=== PATIENT | female | born 1950 | race Caucasian/White ===

== ENCOUNTER 2017-06-13 06:40 | Inpatient (IN) | payer MEDICARE ==
[~2017-06-13] VITALS: Ht 170.2 cm; Wt 126.3 kg
[2017-06-13] MEDS ORDERED: LIDOCAINE 1%, 50ML ONE (06:46)
[2017-06-13] MEDS ORDERED: BUPIVACAINE/PF 0.5% ONE (06:46)
[2017-06-13] MEDS ORDERED: BACITRACIN 50,000 UNIT ONE (06:47)
[2017-06-13] MEDS ORDERED: HEPARIN 1,000 UNITS/ML, 10ML ONE (06:47)
[2017-06-13] MEDS ORDERED: THROMBIN 20,000 UNIT VIAL TP ONE (06:47)
[2017-06-13] MEDS ORDERED: EPINEPHRINE 1 MG/ML, 1ML ONE (06:47)
[2017-06-13] MEDS ORDERED: PAPAVERINE 30 MG/ML, 2ML ONE (06:47)
[2017-06-13] MEDS ORDERED: PROTAMINE SULFATE 10 MG/ML, 5ML ONE (06:47)
[2017-06-13] MEDS ORDERED: MIDAZOLAM 1 MG/ML, 2ML ONE (07:03)
[2017-06-13] MEDS ORDERED: FENTANYL PF 250 MCG/5ML ONE (07:03)
[2017-06-13 07:50] VITALS: BP 150/72
[2017-06-13 08:15] LABS: HEMATOCRIT 33.4 % (34.6-47.8); HEMOGLOBIN 11.2 g/dL (11.7-16.4); WHITE BLOOD COUNT 15.3 x10^3/uL (3.4-10)
[2017-06-13 08:16] LABS: ASPARTATE AMINO TRANSFERASE 21 U/L (15-37); BLOOD UREA NITROGEN 20 mg/dL (7-18)
[2017-06-13] MEDS ORDERED: iron PO (08:17)
[2017-06-13] MEDS ORDERED: OMEP-110 PO (08:17)
[2017-06-13] MEDS ORDERED: ROFL500T PO (08:17)
[2017-06-13] MEDS ORDERED: GLIP5TAB10 PO ×2 (08:17)
[2017-06-13] MEDS ORDERED: TIOT18CA INH (08:17)
[2017-06-13] MEDS ORDERED: TRAZ50TA18 PO (08:17)
[2017-06-13] MEDS ORDERED: CHOL5000 PO (08:17)
[2017-06-13] MEDS ORDERED: TRAM50TA2 PO (08:17)
[2017-06-13] MEDS ORDERED: GUAI-103 PO (08:17)
[2017-06-13] MEDS ORDERED: PRED20TA PO (08:17)
[2017-06-13] MEDS ORDERED: LEVO137T3 PO (08:17)
[2017-06-13] MEDS ORDERED: FURO20TA3 PO (08:17)
[2017-06-13] MEDS ORDERED: ATOR40TA78 PO (08:17)
[2017-06-13] MEDS ORDERED: OXYC10TA47 PO (08:17)
[2017-06-13] MEDS ORDERED: DULO30CA2 PO (08:17)
[2017-06-13] MEDS ORDERED: ALBU5SOL6 INH (08:17)
[2017-06-13] MEDS ORDERED: AZIT250T PO (08:17)
[2017-06-13] MEDS ORDERED: BUDE10.2 INH (08:17)
[2017-06-13] MEDS ORDERED: POTA10CA PO (08:17)
[2017-06-13] MEDS ORDERED: CLOP75TA52 PO (08:18)
[2017-06-13] MEDS ORDERED: LACTATED RINGERS 1,000 ML IV SCH (08:19)
[2017-06-13] MEDS ORDERED: HYDROmorphone 1 MG/ML, 1ML IV PRN (08:30)
[2017-06-13] MEDS ORDERED: hydrALAzine 20 MG/ML, 1ML IV PRN (08:30)
[2017-06-13] MEDS ORDERED: FENTANYL PF 100 MCG/2ML IV PRN ×2 (08:30→13:30)
[2017-06-13] MEDS ORDERED: ONDANSETRON 2MG/ML, 2ML IVPush PRN (08:30)
[2017-06-13] MEDS ORDERED: OXYcodone 5 MG/5 ML ORAL.SOL UDC PO PRN (08:30)
[2017-06-13] MEDS ORDERED: ACETAMINOPHEN 325 MG TABLET PO PRN ×2 (08:30→13:30)
[2017-06-13] MEDS ORDERED: SUCCINYLCHOLINE 20 MG/ML, 10ML ONE (08:39)
[2017-06-13] MEDS ORDERED: PROPOFOL 10 MG/ML, 20ML ONE (08:39)
[2017-06-13] MEDS ORDERED: NEOSTIGMINE 1 MG/ML, 10ML ONE (08:39)
[2017-06-13] MEDS ORDERED: DEXAMETHASONE 4 MG/ML, 5ML ONE (08:39)
[2017-06-13] MEDS ORDERED: CEFAZOLIN 1,000 MG ONE (08:39)
[2017-06-13] MEDS ORDERED: ONDANSETRON 2MG/ML, 2ML ONE (08:39)
[2017-06-13] MEDS ORDERED: GLYCOPYRROLATE 0.2MG/1ML, 5ML ONE (08:39)
[2017-06-13] MEDS ORDERED: FENTANYL PF 100 MCG/2ML ONE (11:22)
[2017-06-13] MEDS ORDERED: ACETAMINOPHEN 650 MG/20.3 ML UDC ONE (11:22)
[2017-06-13] MEDS ORDERED: OXYcodone 5 MG/5 ML ORAL.SOL UDC ONE (11:22)
[2017-06-13] MEDS ORDERED: PHENYLEPHRINE 10 MG in SODIUM CHLORIDE 0.9% 249 ML IV ONE (11:24)
[2017-06-13] MEDS ORDERED: HYDROmorphone 2 MG/ML, 1ML ONE (12:07)
[2017-06-13] MEDS ORDERED: PHENYLEPHRINE 10 MG in SODIUM CHLORIDE 0.9% 249 ML IV SCH (12:30)
[2017-06-13] MEDS ORDERED: IPRATROPIUM 0.5 MG/2.5 ML INHA NPPB SCH (13:30)
[2017-06-13] MEDS ORDERED: LABETALOL 5MG/ML, 20ML IVPush PRN (13:30)
[2017-06-13] MEDS ORDERED: ONDANSETRON 2MG/ML, 2ML IV PRN (13:30)
[2017-06-13] MEDS ORDERED: PHENYLEPHRINE 10 MG in DEXTROSE 5% 249 ML IV SCH (13:30)
[2017-06-13] MEDS ORDERED: NITROPRUSSIDE 50 MG in DEXTROSE 5% 248 ML IV SCH (13:30)
[2017-06-13] MEDS ORDERED: DEXTROSE 5% IV SCH (15:00)
[2017-06-13] MEDS ORDERED: PHENYLEPHRINE IV SCH (15:00)
[2017-06-13] MEDS: POTASSIUM CHLORIDE 20 MEQ in D5%-0.45% NACL 1,000 ML IV SCH (15:14)
[2017-06-13] MEDS ORDERED: ALBUTEROL SULFATE 2.5 MG/3 ML NPPB SCH (16:00)
[2017-06-13] MEDS ORDERED: ENOXAPARIN 40 MG/0.4 ML SQ SCH (16:00)
[2017-06-13] MEDS: ALBUTEROL/IPRATROPIUM 2.5MG/0.5MG, 3 ML NPPB SCH ×2 (17:39→20:08)
[2017-06-13] MEDS: INSULIN REGULAR, HUMAN 100 UNITS/ML, 3ML MEDIUM DOSE SS SQ-INSULIN SCH ×2 (17:56→21:03)
[2017-06-13] MEDS ORDERED: ALBUTEROL/IPRATROPIUM 2.5MG/0.5MG, 3 ML NPPB PRN (18:00)
[2017-06-13] MEDS ORDERED: ATORVASTATIN 40 MG TABLET PO SCH (21:00)
[2017-06-13] MEDS ORDERED: SODIUM CHLORIDE FLUSH 10ML SYR IVF SCH (21:00)
[2017-06-14] MEDS: ALBUTEROL/IPRATROPIUM 2.5MG/0.5MG, 3 ML NPPB SCH ×2 (02:00→05:37)
[2017-06-14] MEDS: POTASSIUM CHLORIDE 20 MEQ in D5%-0.45% NACL 1,000 ML IV SCH (02:58)
[2017-06-14] MEDS ORDERED: LEVOTHYROXINE 137 MCG TABLET PO SCH (06:00)
[2017-06-14] MEDS: INSULIN REGULAR, HUMAN 100 UNITS/ML, 3ML MEDIUM DOSE SS SQ-INSULIN SCH ×2 (06:37→11:00)
[2017-06-14] MEDS ORDERED: OMEPRAZOLE 20 MG CAPSULE.DR PO SCH (07:30)
[2017-06-14] MEDS ORDERED: ROFLUMILAST HOMEMEDPO SCH (09:00)
[2017-06-14] MEDS ORDERED: FLUTICASONE/VILANTEROL 200-25MCG/INH INH SCH (09:00)
[2017-06-14] MEDS ORDERED: ALBUTEROL/IPRATROPIUM 2.5MG/0.5MG, 3 ML NPPB SCH (09:00)
[2017-06-14] MEDS ORDERED: [UNRECOGNIZED DRUG - OTHER] HOMEMEDPO SCH (09:00)
[2017-06-14] MEDS ORDERED: DULOXETINE 30 MG CAPSULE.DR PO SCH (09:00)
[2017-06-14] MEDS ORDERED: FUROSEMIDE 40 MG TABLET PO SCH (09:00)
[2017-06-15] MEDS ORDERED: AZITHROMYCIN 250 MG TABLET PO SCH (09:00)
== END 2017-06-14 13:09 | disposition home or self-care (01) | DRG 38 ==
LOC: ORIP 06:40 → CCU 12:42
PROVIDERS: ADMIT Surgery; ATTEND Surgery
PROC: 03UH0JZ Supplement Right Common Carotid Artery with Synthetic Substitute, Open Approach (ICD-10-PCS; 2017-06-13)
PROC: 03CM0ZZ Extirpation of Matter from Right External Carotid Artery, Open Approach (ICD-10-PCS; 2017-06-13)
PROC: 03CK0ZZ Extirpation of Matter from Right Internal Carotid Artery, Open Approach (ICD-10-PCS; 2017-06-13)
PROC: 03CH0ZZ Extirpation of Matter from Right Common Carotid Artery, Open Approach (ICD-10-PCS; principal; 2017-06-13 08:30)
DX: I65.23 Occlusion and stenosis of bilateral carotid arteries (principal); J96.10 Chronic respiratory failure, unspecified whether with hypoxia or hypercapnia; I48.91 Unspecified atrial fibrillation; E66.01 Morbid (severe) obesity due to excess calories; Z99.81 Dependence on supplemental oxygen; Z68.41 Body mass index [BMI] 40.0-44.9, adult; E03.9 Hypothyroidism, unspecified; E11.9 Type 2 diabetes mellitus without complications; E78.00 Pure hypercholesterolemia, unspecified; Z96.652 Presence of left artificial knee joint; E78.5 Hyperlipidemia, unspecified; I10 Essential (primary) hypertension; J44.9 Chronic obstructive pulmonary disease, unspecified; Z79.01 Long term (current) use of anticoagulants; Z80.8 Family history of malignant neoplasm of other organs or systems; Z82.49 Family history of ischemic heart disease and other diseases of the circulatory system; Z82.5 Family history of asthma and other chronic lower respiratory diseases; Z87.891 Personal history of nicotine dependence; Z95.0 Presence of cardiac pacemaker
CPT/HCPCS: 36415; 80053; 82962; 85025; 85347; 86850; 86900; 87081; 93005; 94640; 95938; 95941; C1729; J0171; J0690; J1100; J1170; J1644; J1650; J1815; J2250; J2405; J2704; J2710; J2720; J3010; J3480; J3490; J7060; J7620; C1768; J0330; J2370; J2440; J7050; J7120

== ENCOUNTER 2017-12-17 11:39 | Emergency (ER) | payer MEDICARE, OTHER | END 2017-12-17 11:43 | disposition left against medical advice (07) | LOC: ED 11:40 | DX: Z53.21 Procedure and treatment not carried out due to patient leaving prior to being seen by health care provider (principal) ==

== ENCOUNTER → 2017-12-17 | Outpatient (CLI) | payer MEDICARE ==
[~2017-12-17] MED LIST: ALBU5SOL6 INH; ATOR40TA78 PO; AZIT250T PO; BUDE10.2 INH; CHOL5000 PO; CLOP75TA52 PO; DULO30CA2 PO; FURO20TA3 PO; GLIP5TAB10 PO; GUAI-103 PO; LEVO137T3 PO; OMEP-110 PO; OXYC10TA47 PO; POTA10CA PO; PRED20TA PO; ROFL500T PO; TIOT18CA INH; TRAM50TA2 PO; TRAZ50TA18 PO; iron PO
== END | disposition home or self-care (01) ==
LOC: CFH 10:23
PROVIDERS: ATTEND Surgery
DX: I65.23 Occlusion and stenosis of bilateral carotid arteries (principal)
CPT/HCPCS: 93880

== ENCOUNTER 2020-09-08 13:55 | Outpatient (CLI) | payer MEDICARE ==
[~2020-09-08 13:55] MED LIST changes: -TRAZ50TA18 PO; +TRAZ50TA66 PO
== END 2020-09-08 23:59 | disposition home or self-care (01) ==
LOC: WOUND 13:55
PROVIDERS: ATTEND Podiatrist Foot & Ankle Surgery
DX: E11.621 Type 2 diabetes mellitus with foot ulcer (principal); L97.522 Non-pressure chronic ulcer of other part of left foot with fat layer exposed; J44.9 Chronic obstructive pulmonary disease, unspecified; I10 Essential (primary) hypertension; E78.5 Hyperlipidemia, unspecified; E03.9 Hypothyroidism, unspecified; I48.91 Unspecified atrial fibrillation; E78.00 Pure hypercholesterolemia, unspecified; E66.01 Morbid (severe) obesity due to excess calories; Z68.33 Body mass index [BMI] 33.0-33.9, adult; Z79.01 Long term (current) use of anticoagulants; Z95.0 Presence of cardiac pacemaker; Z87.891 Personal history of nicotine dependence; Z96.652 Presence of left artificial knee joint; Z96.649 Presence of unspecified artificial hip joint
CPT/HCPCS: 11042; G0463

== ENCOUNTER 2020-09-15 14:19 | Outpatient (CLI) | payer MEDICARE | END 2020-09-15 23:59 | disposition home or self-care (01) | LOC: WOUND 14:19 | PROVIDERS: ATTEND Podiatrist Foot & Ankle Surgery | DX: E11.621 Type 2 diabetes mellitus with foot ulcer (principal); L97.522 Non-pressure chronic ulcer of other part of left foot with fat layer exposed; J44.9 Chronic obstructive pulmonary disease, unspecified; I10 Essential (primary) hypertension; E78.5 Hyperlipidemia, unspecified; E03.9 Hypothyroidism, unspecified; I48.91 Unspecified atrial fibrillation; E78.00 Pure hypercholesterolemia, unspecified; E66.01 Morbid (severe) obesity due to excess calories; Z68.33 Body mass index [BMI] 33.0-33.9, adult; Z79.01 Long term (current) use of anticoagulants; Z95.0 Presence of cardiac pacemaker; Z87.891 Personal history of nicotine dependence; Z96.652 Presence of left artificial knee joint; Z96.649 Presence of unspecified artificial hip joint | CPT/HCPCS: 11042 ==

== ENCOUNTER → 2020-09-29 | Outpatient (CLI) | payer MEDICARE | END | disposition home or self-care (01) | LOC: WOUND 12:31 | PROVIDERS: ATTEND Podiatrist Foot & Ankle Surgery | DX: E11.621 Type 2 diabetes mellitus with foot ulcer (principal); L97.522 Non-pressure chronic ulcer of other part of left foot with fat layer exposed; I10 Essential (primary) hypertension; E78.5 Hyperlipidemia, unspecified; E03.9 Hypothyroidism, unspecified; J44.9 Chronic obstructive pulmonary disease, unspecified; E78.00 Pure hypercholesterolemia, unspecified; I48.91 Unspecified atrial fibrillation; E66.01 Morbid (severe) obesity due to excess calories; Z87.891 Personal history of nicotine dependence; Z68.33 Body mass index [BMI] 33.0-33.9, adult; Z79.84 Long term (current) use of oral hypoglycemic drugs; Z79.899 Other long term (current) drug therapy; Z95.0 Presence of cardiac pacemaker; Z96.652 Presence of left artificial knee joint | CPT/HCPCS: 97602 ==

== ENCOUNTER 2020-10-06 13:46 | Outpatient (CLI) | payer MEDICARE | END 2020-10-06 23:59 | disposition home or self-care (01) | LOC: WOUND 13:46 | PROVIDERS: ATTEND Podiatrist Foot & Ankle Surgery | DX: E11.621 Type 2 diabetes mellitus with foot ulcer (principal); L97.525 Non-pressure chronic ulcer of other part of left foot with muscle involvement without evidence of necrosis; J44.9 Chronic obstructive pulmonary disease, unspecified; I10 Essential (primary) hypertension; E78.5 Hyperlipidemia, unspecified; E03.9 Hypothyroidism, unspecified; E78.00 Pure hypercholesterolemia, unspecified; I48.91 Unspecified atrial fibrillation; E66.01 Morbid (severe) obesity due to excess calories; Z68.33 Body mass index [BMI] 33.0-33.9, adult; Z79.899 Other long term (current) drug therapy; Z79.84 Long term (current) use of oral hypoglycemic drugs; Z96.649 Presence of unspecified artificial hip joint; Z87.891 Personal history of nicotine dependence; Z96.652 Presence of left artificial knee joint; Z95.0 Presence of cardiac pacemaker | CPT/HCPCS: 11042 ==

== ENCOUNTER 2020-10-13 11:41 | Outpatient (CLI) | payer MEDICARE | END 2020-10-13 23:59 | disposition home or self-care (01) | LOC: CFH 11:41 | PROVIDERS: ATTEND Podiatrist Foot & Ankle Surgery | DX: S93.142A Subluxation of metatarsophalangeal joint of left great toe, initial encounter (principal); M19.072 Primary osteoarthritis, left ankle and foot; E11.621 Type 2 diabetes mellitus with foot ulcer; L97.522 Non-pressure chronic ulcer of other part of left foot with fat layer exposed; M77.32 Calcaneal spur, left foot; M79.89 Other specified soft tissue disorders; X58.XXXA Exposure to other specified factors, initial encounter; Y93.89 Activity, other specified; Y92.89 Other specified places as the place of occurrence of the external cause; Y99.8 Other external cause status ==

== ENCOUNTER → 2020-10-13 | Outpatient (CLI) | payer MEDICARE | END | disposition home or self-care (01) | LOC: WOUND 11:00 | PROVIDERS: ATTEND Podiatrist Foot & Ankle Surgery | DX: E11.621 Type 2 diabetes mellitus with foot ulcer (principal); L97.522 Non-pressure chronic ulcer of other part of left foot with fat layer exposed; L03.116 Cellulitis of left lower limb; J44.9 Chronic obstructive pulmonary disease, unspecified; I10 Essential (primary) hypertension; E78.5 Hyperlipidemia, unspecified; E03.9 Hypothyroidism, unspecified; E78.00 Pure hypercholesterolemia, unspecified; I48.91 Unspecified atrial fibrillation; E66.01 Morbid (severe) obesity due to excess calories; Z68.33 Body mass index [BMI] 33.0-33.9, adult; Z79.899 Other long term (current) drug therapy; Z79.84 Long term (current) use of oral hypoglycemic drugs; Z96.649 Presence of unspecified artificial hip joint; Z87.891 Personal history of nicotine dependence; Z96.652 Presence of left artificial knee joint; Z95.0 Presence of cardiac pacemaker; Z79.01 Long term (current) use of anticoagulants | CPT/HCPCS: 11042 ==

== ENCOUNTER → 2020-10-20 | Outpatient (CLI) | payer MEDICARE | END | disposition home or self-care (01) | LOC: WOUND 10:45 | PROVIDERS: ATTEND Podiatrist Foot & Ankle Surgery | DX: E11.621 Type 2 diabetes mellitus with foot ulcer (principal); L97.522 Non-pressure chronic ulcer of other part of left foot with fat layer exposed; L03.116 Cellulitis of left lower limb; E11.69 Type 2 diabetes mellitus with other specified complication; M86.172 Other acute osteomyelitis, left ankle and foot; J44.9 Chronic obstructive pulmonary disease, unspecified; I10 Essential (primary) hypertension; E78.5 Hyperlipidemia, unspecified; E03.9 Hypothyroidism, unspecified; E78.00 Pure hypercholesterolemia, unspecified; I48.91 Unspecified atrial fibrillation; E66.01 Morbid (severe) obesity due to excess calories; Z68.33 Body mass index [BMI] 33.0-33.9, adult; Z79.899 Other long term (current) drug therapy; Z79.84 Long term (current) use of oral hypoglycemic drugs; Z96.649 Presence of unspecified artificial hip joint; Z87.891 Personal history of nicotine dependence; Z96.652 Presence of left artificial knee joint; Z95.0 Presence of cardiac pacemaker; Z79.01 Long term (current) use of anticoagulants | CPT/HCPCS: 11042 ==

== ENCOUNTER 2020-10-21 08:10 | Outpatient (CLI) | payer MEDICARE ==
[~2020-10-21 08:10] MED LIST changes: +OMNIPAQUE 350 MG/ML, 150 ML BOTTLE ONE
== END 2020-10-21 23:59 | disposition home or self-care (01) ==
LOC: CFH 08:10
PROVIDERS: ATTEND Podiatrist Foot & Ankle Surgery
DX: R60.0 Localized edema (principal); L03.116 Cellulitis of left lower limb; L97.522 Non-pressure chronic ulcer of other part of left foot with fat layer exposed
CPT/HCPCS: 73701; Q9967

== ENCOUNTER 2020-11-03 08:58 | Outpatient (CLI) | payer MEDICARE ==
[~2020-11-03 08:58] MED LIST changes: -OMNIPAQUE 350 MG/ML, 150 ML BOTTLE ONE
== END 2020-11-03 23:59 | disposition home or self-care (01) ==
LOC: WOUND 08:58
PROVIDERS: ATTEND Podiatrist Foot & Ankle Surgery
DX: E11.621 Type 2 diabetes mellitus with foot ulcer (principal); L97.522 Non-pressure chronic ulcer of other part of left foot with fat layer exposed; L03.116 Cellulitis of left lower limb; E11.69 Type 2 diabetes mellitus with other specified complication; M86.172 Other acute osteomyelitis, left ankle and foot; J44.9 Chronic obstructive pulmonary disease, unspecified; I10 Essential (primary) hypertension; E78.5 Hyperlipidemia, unspecified; E03.9 Hypothyroidism, unspecified; E78.00 Pure hypercholesterolemia, unspecified; I48.91 Unspecified atrial fibrillation; M19.072 Primary osteoarthritis, left ankle and foot; E66.01 Morbid (severe) obesity due to excess calories; Z68.33 Body mass index [BMI] 33.0-33.9, adult; Z79.899 Other long term (current) drug therapy; Z79.84 Long term (current) use of oral hypoglycemic drugs; Z96.649 Presence of unspecified artificial hip joint; Z87.891 Personal history of nicotine dependence; Z96.652 Presence of left artificial knee joint; Z95.0 Presence of cardiac pacemaker; Z79.01 Long term (current) use of anticoagulants
CPT/HCPCS: 11042

== ENCOUNTER 2020-11-10 09:56 | Outpatient (CLI) | payer MEDICARE | END 2020-11-10 23:59 | disposition home or self-care (01) | LOC: WOUND 09:56 | PROVIDERS: ATTEND Podiatrist Foot & Ankle Surgery | DX: E11.621 Type 2 diabetes mellitus with foot ulcer (principal); L97.522 Non-pressure chronic ulcer of other part of left foot with fat layer exposed; L03.116 Cellulitis of left lower limb; E11.69 Type 2 diabetes mellitus with other specified complication; M86.172 Other acute osteomyelitis, left ankle and foot; J44.9 Chronic obstructive pulmonary disease, unspecified; I10 Essential (primary) hypertension; E78.5 Hyperlipidemia, unspecified; E03.9 Hypothyroidism, unspecified; E78.00 Pure hypercholesterolemia, unspecified; I48.91 Unspecified atrial fibrillation; M19.072 Primary osteoarthritis, left ankle and foot; E66.01 Morbid (severe) obesity due to excess calories; Z68.33 Body mass index [BMI] 33.0-33.9, adult; Z79.899 Other long term (current) drug therapy; Z79.84 Long term (current) use of oral hypoglycemic drugs; Z96.649 Presence of unspecified artificial hip joint; Z87.891 Personal history of nicotine dependence; Z96.652 Presence of left artificial knee joint; Z95.0 Presence of cardiac pacemaker; Z79.01 Long term (current) use of anticoagulants | CPT/HCPCS: 15275; Q4133 ==

== ENCOUNTER → 2020-11-17 | Outpatient (CLI) | payer MEDICARE | END | disposition home or self-care (01) | LOC: WOUND 09:13 | PROVIDERS: ATTEND Podiatrist Foot & Ankle Surgery | DX: E11.621 Type 2 diabetes mellitus with foot ulcer (principal); L97.522 Non-pressure chronic ulcer of other part of left foot with fat layer exposed; L03.116 Cellulitis of left lower limb; E11.69 Type 2 diabetes mellitus with other specified complication; M86.172 Other acute osteomyelitis, left ankle and foot; J44.9 Chronic obstructive pulmonary disease, unspecified; I10 Essential (primary) hypertension; E78.5 Hyperlipidemia, unspecified; E03.9 Hypothyroidism, unspecified; E78.00 Pure hypercholesterolemia, unspecified; I48.91 Unspecified atrial fibrillation; M19.072 Primary osteoarthritis, left ankle and foot; E66.01 Morbid (severe) obesity due to excess calories; Z68.33 Body mass index [BMI] 33.0-33.9, adult; Z79.899 Other long term (current) drug therapy; Z79.84 Long term (current) use of oral hypoglycemic drugs; Z96.649 Presence of unspecified artificial hip joint; Z87.891 Personal history of nicotine dependence; Z96.652 Presence of left artificial knee joint; Z95.0 Presence of cardiac pacemaker; Z79.01 Long term (current) use of anticoagulants | CPT/HCPCS: 15275; Q4133 ==

== ENCOUNTER → 2020-11-24 | Outpatient (CLI) | payer MEDICARE | END | disposition home or self-care (01) | LOC: WOUND 10:30 | PROVIDERS: ATTEND Podiatrist Foot & Ankle Surgery | DX: E11.621 Type 2 diabetes mellitus with foot ulcer (principal); L97.522 Non-pressure chronic ulcer of other part of left foot with fat layer exposed; L03.116 Cellulitis of left lower limb; E11.69 Type 2 diabetes mellitus with other specified complication; M86.172 Other acute osteomyelitis, left ankle and foot; J44.9 Chronic obstructive pulmonary disease, unspecified; I10 Essential (primary) hypertension; E78.5 Hyperlipidemia, unspecified; E03.9 Hypothyroidism, unspecified; E78.00 Pure hypercholesterolemia, unspecified; I48.91 Unspecified atrial fibrillation; M19.072 Primary osteoarthritis, left ankle and foot; E66.01 Morbid (severe) obesity due to excess calories; Z68.33 Body mass index [BMI] 33.0-33.9, adult; Z79.899 Other long term (current) drug therapy; Z79.84 Long term (current) use of oral hypoglycemic drugs; Z96.649 Presence of unspecified artificial hip joint; Z87.891 Personal history of nicotine dependence; Z96.652 Presence of left artificial knee joint; Z95.0 Presence of cardiac pacemaker; Z79.01 Long term (current) use of anticoagulants | CPT/HCPCS: 15275; Q4132 ==

== ENCOUNTER → 2020-12-01 | Outpatient (CLI) | payer MEDICARE | END | disposition home or self-care (01) | LOC: WOUND 08:45 | PROVIDERS: ATTEND Podiatrist Foot & Ankle Surgery | DX: E11.621 Type 2 diabetes mellitus with foot ulcer (principal); L97.522 Non-pressure chronic ulcer of other part of left foot with fat layer exposed; L03.116 Cellulitis of left lower limb; E11.69 Type 2 diabetes mellitus with other specified complication; M86.172 Other acute osteomyelitis, left ankle and foot; J44.9 Chronic obstructive pulmonary disease, unspecified; I10 Essential (primary) hypertension; E78.5 Hyperlipidemia, unspecified; E03.9 Hypothyroidism, unspecified; E78.00 Pure hypercholesterolemia, unspecified; I48.91 Unspecified atrial fibrillation; M19.072 Primary osteoarthritis, left ankle and foot; E66.01 Morbid (severe) obesity due to excess calories; Z68.33 Body mass index [BMI] 33.0-33.9, adult; Z79.899 Other long term (current) drug therapy; Z79.84 Long term (current) use of oral hypoglycemic drugs; Z96.649 Presence of unspecified artificial hip joint; Z87.891 Personal history of nicotine dependence; Z96.652 Presence of left artificial knee joint; Z95.0 Presence of cardiac pacemaker; Z79.01 Long term (current) use of anticoagulants | CPT/HCPCS: 15275; Q4133 ==

== ENCOUNTER → 2020-12-15 | Outpatient (CLI) | payer MEDICARE | END | disposition home or self-care (01) | LOC: WOUND 10:17 | PROVIDERS: ATTEND Podiatrist Foot & Ankle Surgery | DX: E11.621 Type 2 diabetes mellitus with foot ulcer (principal); L97.522 Non-pressure chronic ulcer of other part of left foot with fat layer exposed; S81.811A Laceration without foreign body, right lower leg, initial encounter; L03.116 Cellulitis of left lower limb; E11.69 Type 2 diabetes mellitus with other specified complication; M86.172 Other acute osteomyelitis, left ankle and foot; J44.9 Chronic obstructive pulmonary disease, unspecified; I10 Essential (primary) hypertension; E78.5 Hyperlipidemia, unspecified; E03.9 Hypothyroidism, unspecified; E78.00 Pure hypercholesterolemia, unspecified; I48.91 Unspecified atrial fibrillation; M19.072 Primary osteoarthritis, left ankle and foot; E66.01 Morbid (severe) obesity due to excess calories; Z68.33 Body mass index [BMI] 33.0-33.9, adult; Z79.899 Other long term (current) drug therapy; Z79.84 Long term (current) use of oral hypoglycemic drugs; Z96.649 Presence of unspecified artificial hip joint; Z87.891 Personal history of nicotine dependence; Z96.652 Presence of left artificial knee joint; Z95.0 Presence of cardiac pacemaker; Z79.01 Long term (current) use of anticoagulants; X58.XXXA Exposure to other specified factors, initial encounter; Y93.89 Activity, other specified; Y92.89 Other specified places as the place of occurrence of the external cause; Y99.8 Other external cause status | CPT/HCPCS: 15275; Q4133 ==

== ENCOUNTER 2020-12-22 10:59 | Outpatient (CLI) | payer MEDICARE ==
[~2020-12-22 10:59] MED LIST changes: -ALBU5SOL6 INH; +DOCU50LI23 INH
== END 2020-12-22 23:59 | disposition home or self-care (01) ==
LOC: WOUND 10:59
PROVIDERS: ATTEND Podiatrist Foot & Ankle Surgery
DX: E11.621 Type 2 diabetes mellitus with foot ulcer (principal); L97.522 Non-pressure chronic ulcer of other part of left foot with fat layer exposed; L97.511 Non-pressure chronic ulcer of other part of right foot limited to breakdown of skin; L97.413 Non-pressure chronic ulcer of right heel and midfoot with necrosis of muscle; S81.811D Laceration without foreign body, right lower leg, subsequent encounter; E11.69 Type 2 diabetes mellitus with other specified complication; M86.172 Other acute osteomyelitis, left ankle and foot; L03.116 Cellulitis of left lower limb; J44.9 Chronic obstructive pulmonary disease, unspecified; I10 Essential (primary) hypertension; E78.5 Hyperlipidemia, unspecified; E03.9 Hypothyroidism, unspecified; E78.00 Pure hypercholesterolemia, unspecified; M19.072 Primary osteoarthritis, left ankle and foot; E66.01 Morbid (severe) obesity due to excess calories; I48.91 Unspecified atrial fibrillation; Z68.33 Body mass index [BMI] 33.0-33.9, adult; Z95.0 Presence of cardiac pacemaker; Z96.652 Presence of left artificial knee joint; Z96.649 Presence of unspecified artificial hip joint; Z87.891 Personal history of nicotine dependence; X58.XXXD Exposure to other specified factors, subsequent encounter
CPT/HCPCS: 11043; 11046; 15275; 97597; Q4133

== ENCOUNTER → 2020-12-29 | Outpatient (CLI) | payer MEDICARE ==
[~2020-12-29] MED LIST changes: +ALBU5SOL6 INH; -DOCU50LI23 INH
== END | disposition home or self-care (01) ==
LOC: WOUND 11:00
PROVIDERS: ATTEND Podiatrist Foot & Ankle Surgery
DX: E11.621 Type 2 diabetes mellitus with foot ulcer (principal); L97.413 Non-pressure chronic ulcer of right heel and midfoot with necrosis of muscle; L97.522 Non-pressure chronic ulcer of other part of left foot with fat layer exposed; L97.511 Non-pressure chronic ulcer of other part of right foot limited to breakdown of skin; S81.811D Laceration without foreign body, right lower leg, subsequent encounter; L03.116 Cellulitis of left lower limb; E11.69 Type 2 diabetes mellitus with other specified complication; M86.172 Other acute osteomyelitis, left ankle and foot; J44.9 Chronic obstructive pulmonary disease, unspecified; I10 Essential (primary) hypertension; E78.5 Hyperlipidemia, unspecified; E03.9 Hypothyroidism, unspecified; E78.00 Pure hypercholesterolemia, unspecified; I48.91 Unspecified atrial fibrillation; M19.072 Primary osteoarthritis, left ankle and foot; E66.01 Morbid (severe) obesity due to excess calories; Z68.33 Body mass index [BMI] 33.0-33.9, adult; Z79.899 Other long term (current) drug therapy; Z79.84 Long term (current) use of oral hypoglycemic drugs; Z79.01 Long term (current) use of anticoagulants; Z96.649 Presence of unspecified artificial hip joint; Z96.652 Presence of left artificial knee joint; Z87.891 Personal history of nicotine dependence; Z95.0 Presence of cardiac pacemaker; X58.XXXD Exposure to other specified factors, subsequent encounter
CPT/HCPCS: 15271; 15275; Q4132

== ENCOUNTER 2021-01-05 10:20 | Outpatient (CLI) | payer MEDICARE ==
[~2021-01-05 10:20] MED LIST changes: -ALBU5SOL6 INH; +DOCU50LI23 INH
== END 2021-01-05 23:59 | disposition home or self-care (01) ==
LOC: WOUND 10:20
PROVIDERS: ATTEND Podiatrist Foot & Ankle Surgery
DX: E11.621 Type 2 diabetes mellitus with foot ulcer (principal); L97.522 Non-pressure chronic ulcer of other part of left foot with fat layer exposed; L97.512 Non-pressure chronic ulcer of other part of right foot with fat layer exposed; L97.413 Non-pressure chronic ulcer of right heel and midfoot with necrosis of muscle; S81.811D Laceration without foreign body, right lower leg, subsequent encounter; L03.116 Cellulitis of left lower limb; E11.69 Type 2 diabetes mellitus with other specified complication; M86.172 Other acute osteomyelitis, left ankle and foot; J44.9 Chronic obstructive pulmonary disease, unspecified; I10 Essential (primary) hypertension; E78.5 Hyperlipidemia, unspecified; E03.9 Hypothyroidism, unspecified; E78.00 Pure hypercholesterolemia, unspecified; I48.91 Unspecified atrial fibrillation; M19.072 Primary osteoarthritis, left ankle and foot; E66.01 Morbid (severe) obesity due to excess calories; Z68.33 Body mass index [BMI] 33.0-33.9, adult; Z79.899 Other long term (current) drug therapy; Z79.84 Long term (current) use of oral hypoglycemic drugs; Z79.01 Long term (current) use of anticoagulants; Z96.649 Presence of unspecified artificial hip joint; Z87.891 Personal history of nicotine dependence; Z95.0 Presence of cardiac pacemaker; Z96.652 Presence of left artificial knee joint; X58.XXXD Exposure to other specified factors, subsequent encounter
CPT/HCPCS: 15271; 15275; Q4133; 11042